=== PATIENT | female | born 1945 | race Hispanic/Latino ===

== ENCOUNTER → 2022-03-17 | Outpatient (CLI) | payer OTHER | END | disposition home or self-care (01) | LOC: RAH 12:11 | PROVIDERS: ATTEND Internal Medicine Cardiovascular Disease | DX: Z13.6 Encounter for screening for cardiovascular disorders (principal); I51.5 Myocardial degeneration | CPT/HCPCS: 75571 ==

== ENCOUNTER → 2022-04-20 | Outpatient (CLI) | payer OTHER ==
[~2022-04-20] MED LIST: GADOTERATE MEGLUMINE 10 MMOL/20 ML VIAL IV ONE
== END | disposition home or self-care (01) ==
LOC: RAH 14:41
PROVIDERS: ATTEND Family Medicine
DX: I77.6 Arteritis, unspecified (principal)
CPT/HCPCS: 70553; A9575

== ENCOUNTER 2023-04-24 08:54 | Observation (INO) | payer OTHER ==
[~2023-04-24] VITALS: Ht 160 cm; Wt 69.1 kg
[2023-04-24 09:52] LABS: HEMATOCRIT 36.5 % (36-48); MEAN CORPUSCULAR HEMOGLOBIN 31.7 pg (27.0-33.0); MEAN CORPUSCULAR HGB CONC 32.9 g/dL (32.0-36.0); MEAN CORPUSCULAR VOLUME 96.3 fL (79-99); RED BLOOD CELL COUNT(AUTO) 3.79 MIL/uL (4.00-5.50); RED CELL DISTRIBUTION WIDTH 12.6 % (11.0-15.5); WHITE BLOOD COUNT (AUTO) 5.5 K/uL (4.8-10.8)
[2023-04-24 10:09] LABS: CREATININE 1.1 mg/dL (0.5-1.5); POTASSIUM 3.9 mmol/L (3.5-5.1)
[2023-04-24] MEDS ORDERED: 0.9%NACL 1000ML 1,000 ML IV ONE (10:30)
[2023-04-24 12:19] LABS: APPEARANCE,URINE CLEAR (CLEAR); BILIRUBIN,URINE NEGATIVE (NEGATIVE); COLOR,URINE LIGHT-YELLOW (YELLOW); GLUCOSE, URINE (UA) NEGATIVE (NEGATIVE); KETONES,URINE NEGATIVE (NEGATIVE); LEUKOCYTE ESTERASE ,URINE 250 Leu/uL (NEGATIVE); NITRATE,URINE NEGATIVE (NEGATIVE); OCCULT BLOOD,URINE NEGATIVE (NEGATIVE); PH,URINE 6.5 (5.0-8.0); PROTEIN,URINE NEGATIVE (NEGATIVE); UROBILINOGEN,URINE 0.2 mg/dL (0.2-1.0)
[2023-04-24 12:31] LABS: ADD UA MICROSCOPIC YES
[2023-04-24 12:44] LABS: RBC,URINE 0-1 /HPF (0-1); SQUAMOUS EPITHELIAL CELL,UR RARE /HPF (0-2)
[2023-04-24] MEDS ORDERED: CEFTRIAXONE 2GM VIAL IVPB ONE (13:00)
[2023-04-24] MEDS ORDERED: HYDROCODONE/ACETAMINOPHEN 5/325 MG TAB PO PRN (14:00)
[2023-04-24] MEDS ORDERED: ACETAMINOPHEN 325 MG TAB PO PRN ×3 (14:00)
[2023-04-24] MEDS: CEFTRIAXONE 2GM VIAL IVPB SCH (14:00)
[2023-04-24] MEDS ORDERED: HYDRALAZINE 20MG/ML VIAL IV PRN (14:00)
[2023-04-24] MEDS ORDERED: ZOLPIDEM TARTRATE 5 MG TAB PO PRN (14:00)
[2023-04-24] MEDS ORDERED: KETOROLAC 15MG/ML VIAL (15MG/ML) IV PRN (14:00)
[2023-04-24] MEDS ORDERED: MAG/ALUM/SIMETH 30 ML UDCUP PO PRN (14:00)
[2023-04-24] MEDS ORDERED: ALBUTEROL 0.083% 2.5 MG/3 ML INH IH PRN (14:00)
[2023-04-24] MEDS ORDERED: DiphenhydrAMINE HCL 50 MG/ML VIAL IV PRN (14:00)
[2023-04-24] MEDS ORDERED: LACTULOSE 20 GM/30 ML UDCUP PO PRN (14:00)
[2023-04-24] MEDS ORDERED: NITROGLYCERIN 0.4 MG SL TAB SL PRN (14:00)
[2023-04-24] MEDS ORDERED: GUAIFENESIN-DM 200/20 MG 10 ML PO PRN (14:00)
[2023-04-24] MEDS ORDERED: ONDANSETRON 4MG INJ IV PRN (14:00)
[2023-04-24] MEDS: 0.9%NACL 1000ML 1,000 ML IV SCH ×2 (14:17→23:12)
[2023-04-24 14:52] LABS: ALANINE AMINOTRANSFERASE 28 U/L (12-78); ALBUMIN 2.9 g/dL (3.5-5.0); AMMONIA < 10 umol/L (11-32); ASPARTATE AMINOTRANSFERASE 29 U/L (10-37); BILIRUBIN,DIRECT 0.1 mg/dL (0.0-0.3); BILIRUBIN,TOTAL 0.4 mg/dL (0.2-1.0); TOTAL PROTEIN, SERUM 6.5 g/dL (6.0-8.3)
[2023-04-24] MEDS: INSULIN LISPRO 100 UNIT/ML 3ML SQ SCH ×2 (16:30→21:00)
[2023-04-24 20:00] VITALS: BP 115/63; PULSE 71; RESP 18
[2023-04-24] MEDS ORDERED: FAMOTIDINE 20MG VIAL IV SCH (21:00)
[2023-04-24] MEDS ORDERED: TRAM50TA4 PO (21:40)
[2023-04-24] MEDS ORDERED: VALS160T29 PO (21:40)
[2023-04-24] MEDS ORDERED: ATOR40TA69 PO (21:40)
[2023-04-24] MEDS: FAMOTIDINE 20MG VIAL IV SCH (21:48)
[2023-04-24] MEDS: HEPARIN 5,000 UNIT VIAL SQ SCH (21:48)
[2023-04-25] VITALS (7 sets, daily range): BP systolic 129–150; BP diastolic 55–85; PULSE 64–74; RESP 17–20; O2SAT 96–99
[2023-04-25] MEDS: INSULIN LISPRO 100 UNIT/ML 3ML SQ SCH ×4 (06:03→20:51)
[2023-04-25] MEDS: HEPARIN 5,000 UNIT VIAL SQ SCH ×2 (08:56→20:44)
[2023-04-25] MEDS: 0.9%NACL 1000ML 1,000 ML IV SCH ×2 (12:25→20:00)
[2023-04-25] MEDS: CEFTRIAXONE 2GM VIAL IVPB SCH (17:09)
[2023-04-25 17:17] LABS: ALBUMIN 2.6 g/dL (3.5-5.0); BILIRUBIN,TOTAL 0.3 mg/dL (0.2-1.0); CREATININE 0.8 mg/dL (0.5-1.5); MAGNESIUM 1.9 mg/dL (1.80-2.40); POTASSIUM 3.8 mmol/L (3.5-5.1); TOTAL PROTEIN, SERUM 6.2 g/dL (6.0-8.3)
[2023-04-25] MEDS: FAMOTIDINE 20MG VIAL IV SCH (20:43)
[2023-04-26 00:17] VITALS: BP 165/87; PULSE 62; RESP 18
[2023-04-26 04:20] VITALS: BP 148/60; PULSE 66; RESP 18
[2023-04-26 04:34] LABS: BASOPHILS # (AUTO) 0.03 K/uL (0.00-0.20); BASOPHILS % (AUTO) 0.7 % (0.0-5.0); EOSINOPHILS # (AUTO) 0.21 K/uL (0.00-0.70); EOSINOPHILS % (AUTO) 4.8 % (0.0-8.0); HEMATOCRIT 33.8 % (36-48); IMMATURE GRANULOCYTE ABSOLUTE 0.01 K/uL (0-1); LYMPHOCYTES # (AUTO) 1.7 K/uL (1.0-4.8); LYMPHOCYTES % (AUTO) 38.4 % (21.0-51.0); MEAN CORPUSCULAR HEMOGLOBIN 30.8 pg (27.0-33.0); MEAN CORPUSCULAR VOLUME 96.3 fL (79-99); MONOCYTES # (AUTO) 0.5 K/uL (0.1-1.0); MONOCYTES % (AUTO) 11.2 % (3.0-13.0); NEUTROPHILS % (AUTO) 44.7 % (40.0-77.0); PLATELET COUNT (AUTO) 178 K/uL (130-400); RED BLOOD CELL COUNT(AUTO) 3.51 MIL/uL (4.00-5.50); RED CELL DISTRIBUTION WIDTH 12.4 % (11.0-15.5); WHITE BLOOD COUNT (AUTO) 4.4 K/uL (4.8-10.8)
[2023-04-26 04:51] LABS: ALBUMIN 2.6 g/dL (3.5-5.0); BILIRUBIN,TOTAL 0.3 mg/dL (0.2-1.0); CREATININE 0.8 mg/dL (0.5-1.5); MAGNESIUM 1.8 mg/dL (1.80-2.40); POTASSIUM 3.6 mmol/L (3.5-5.1)
[2023-04-26] MEDS: 0.9%NACL 1000ML 1,000 ML IV SCH ×2 (05:47→13:43)
[2023-04-26] MEDS: INSULIN LISPRO 100 UNIT/ML 3ML SQ SCH ×2 (05:50→11:30)
[2023-04-26 08:00] VITALS: BP 150/67; PULSE 56; RESP 18; O2SAT 96
[2023-04-26] MEDS: HEPARIN 5,000 UNIT VIAL SQ SCH (08:58)
[2023-04-26 12:00] VITALS: BP 155/69; PULSE 65; RESP 18
[2023-04-26] MEDS: CEFTRIAXONE 2GM VIAL IVPB SCH (13:43)
[2023-04-26 16:00] VITALS: BP 159/81; PULSE 64; RESP 18
[2023-04-26] MEDS ORDERED: KCL 20 MEQ ERTAB PO ONE (16:00)
== END 2023-04-26 18:25 | disposition home or self-care (01) ==
LOC: EDH 08:54 → EDHIP 13:56 → 3CH 20:19
PROVIDERS: ADMIT Internal Medicine; ATTEND Internal Medicine
DX: R55 Syncope and collapse (principal); E86.0 Dehydration; N30.00 Acute cystitis without hematuria; I21.4 Non-ST elevation (NSTEMI) myocardial infarction; F32.A Depression, unspecified; E78.00 Pure hypercholesterolemia, unspecified; I10 Essential (primary) hypertension; Z90.49 Acquired absence of other specified parts of digestive tract; Z96.652 Presence of left artificial knee joint; Z79.899 Other long term (current) drug therapy; Z98.49 Cataract extraction status, unspecified eye; W19.XXXA Unspecified fall, initial encounter; Y93.89 Activity, other specified; Y92.89 Other specified places as the place of occurrence of the external cause; Y99.8 Other external cause status
CPT/HCPCS: 96372 ×3; 96361 ×3; 96365; 96366 ×3; 96375 ×2; 99285; 82550; 80076; 84484 ×3; 80048; 83880; 82140; 85027; 87040 ×2; 87088; 82948 ×9; 83605 ×2; 81001; 36415 ×3; 71045; 70450; 93880; 93005 ×2; 94664; 96376; 83735 ×2; 80053 ×2; 93306; 85025; G0378 ×51; J3490 ×2; J7030; J0696 ×3; J1644 ×4; J2405

== ENCOUNTER → 2024-08-15 | Outpatient (CLI) | payer OTHER ==
[~2024-08-15] MED LIST changes: +ATOR40TA69 PO; -GADOTERATE MEGLUMINE 10 MMOL/20 ML VIAL IV ONE; +TRAM50TA4 PO; +VALS160T29 PO
--- NOTE | 2024-08-20 08:53 | HMCSR ---
APPROVED REPORT EXAM: Two-dimensional and M-mode echocardiogram with Doppler and color Doppler. INDICATION ICD: R55 Syncope and collapse 2D Dimensions RVDd3.5 cmLVEF(%)65.7 (>50%)LVED Vol(simp.)93.0 mL IVSd1.3 (0.7-1.1cm)FS(%)36 %LVES Vol(simp.)41.0 mL LVDd5.0 (3.8-5.6cm)Ao Root(2D)2.9 (2.0-3.7cm)LVEF(%, simp.)56 % PWd1.1 (0.7-1.1cm)LVOT diam1.9 (1.8-2.4cm)LA ESV INDEX (BP)36.08 mL/m2 LVDs3.2 (2.5-4.0cm)IVC diam1.7 cm Aortic Valve AoV Vmax1.6 m/Mitzi Peak GR9.7 mmHgLVOT Vmax1.1 m/s AoV VTI0.4 mAo Mean GR5.2 mmHgLVOT VTI0.25 m EARLENE (VMAX)1.9 cm2Al P1/2T632 msAVA (VTI) 1.9 cm2 Mitral Valve MV E Sglm058.5 cm/sDECEL Uhhg790 ms MV A Kwqc282.0 cm/sP 1/2 T70 ms E/A ratio0.8MVA (PHT)3.1 cm2 MR Max PG107 mmHg TDI E/E' Orvuxu11.1E/E' Ptyjacf40.1 Pulmonary Valve PV Vmax1.1 m/sPV VTI0.21 mPV Mean GR2 mmHg PV Peak GR4.8 mmHg Tricuspid Valve TR Vmax2.5 m/sRAP (EST) 3 nyPvJKKH55.5 mmHg TR Peak GR25.5 mmHg Left Ventricle The left ventricle structure and function is normal. There is normal LV segmental wall motion. There is mild left ventricular hypertrophy. LVEF is 55-60%. Grade 1 diastolic dysfunction Right Ventricle The right ventricle is normal size. The right ventricular systolic function is normal. Atria The left atrium is mildly dilated. The right atrium is moderately dilated. Aortic Valve Aortic valve is trileaflet. Aortic valve is mildly calcified. Trace to mild aortic regurgitation. No hemodynamically significant valvular aortic stenosis.Calculated aortic valve area is 1.9 cm2 with max imum pressure gradient of 9.7 mmHg and mean pressure gradient of 5.2 mmHg. Mitral Valve Mitral valve leaflets are mildly sclerotic but open well. Mitral annular calcification is mild. Isis l regurgitation is mild. There is no mitral valve stenosis. Tricuspid Valve The tricuspid valve leaflets appear normal. There is trace to mild tricuspid regurgitation. Pulmonic Valve Pulmonic valve is not well visualized. There is trace pulmonic valvular regurgitation. Great Vessels The aortic root is normal in size. The IVC is normal in size and collapses >50% with inspiration. Pericardium No pericardial effusion. Conclusion There is mild left ventricular hypertrophy. LVEF is 55-60%. Grade 1 diastolic dysfunction Trace to mild aortic regurgitation. No hemodynamically significant valvular aortic stenosis.Calculated aortic valve area is 1.9 cm2 with maximum pressure gradient of 9.7 mmHg and mean pressure gradient of 5.2 mmHg. Mitral regurgitation is mild.
== END | disposition home or self-care (01) ==
LOC: SHCH 11:35
PROVIDERS: ATTEND Internal Medicine Cardiovascular Disease
DX: R55 Syncope and collapse (principal)
CPT/HCPCS: 93306

== ENCOUNTER → 2024-08-28 | Outpatient (CLI) | payer OTHER ==
--- NOTE | 2024-08-29 10:49 | HMCIMG ---
MAMMO SCREENING BILATERAL HISTORY: Screening mammogram. COMPARISON: None TECHNIQUE: Bilateral screening mammogram with CAD was performed with craniocaudal and mediolateral oblique projections. FINDINGS: There are scattered areas of fibroglandular density. There is no evidence of a dominant mass, or suspicious microcalcification. There is no evidence of nipple retraction or skin thickening. IMPRESSION: 1. No dominant mass is seen to suggest a malignant process. Patient was entered into a reminder system with a target due date for their next mammogram. BI-RADS: CATEGORY 2: BENIGN FINDINGS Recommend monthly self breast exam as well as annual clinical examination. A negative x-ray should not delay biopsy if a dominant or clinically suspicious mass is present, since 8-10% of cancers are not identified by mammography. Dense breasts particularly, may obscure an underlying neoplasm. Some of these may be detected clinically and therefore, clinical examination is an essential part of breast evaluation.
== END | disposition home or self-care (01) ==
LOC: RAH 13:55
PROVIDERS: ATTEND Family Medicine
DX: Z12.31 Encounter for screening mammogram for malignant neoplasm of breast (principal); R92.323 Mammographic fibroglandular density, bilateral breasts
CPT/HCPCS: 77067